=== PATIENT | female | born 1930 | race Caucasian/White ===

== ENCOUNTER 2016-12-25 14:45 | Inpatient (IN) | payer OTHER ==
--- NOTE | ~2016-12-25 | HP ---
History And Physical [place] [address] [facility] [place]. [address] NAME: IVANIA FELTON : 28 STATUS : ADM IN PAT#: [id number] AGE: 86 ADM/REG DATE : 12/25/16 MR#: [id number] REPORT SERV DATE: 12/26/16 DICTATED BY: ALLISON NOBLE DATE: 12/25/16 REPORT STATUS : Draft TRANSCRIBED BY: MODL DATE: 12/25/16 DATE OF ADMISSION: 12/25/2016 CHIEF COMPLAINT: An 86-year-old female with metastatic breast cancer and history of colon cancer, now presenting with increasing confusion and falls. HISTORY OF PRESENT ILLNESS: The patient's history was obtained through an interview with the patient and her best friend coupled with review of [facility] and [facility] medical records. The patient is fairly encephalopathic and so is not able to give much of a history herself. The patient has had progressive confusion and gait disturbance for about two weeks now. She has had a fall about a week ago in which she hit the bottom of her chin. She may have had falls that were not witnessed by the family, but there have been no significant lacerations or bruises on her head that they have noticed. Then, on the day of admission, the patient actually was having increasing gait instability and fell three times. Each time, she did not hit her head or lose consciousness. Her confusion has become quite profound. The patient has become increasingly agitated, irritable, uncooperative. She has had no shortness of breath. No fevers or chills. She has had increasing itching over about a week or so with a rash that is mostly from excoriations over her legs and abdominal wall, but it is not painful. She does describe a headache, but is unable to describe a precise quality or severity of that pain. REVIEW OF SYSTEMS: Otherwise, a 14-point review of systems was obtained and was negative. PAST MEDICAL HISTORY: 1. Breast cancer, first diagnosed in 1990 and 1998. The patient has bilateral mastectomy, history of radiation, has been on chemotherapy. Apparently, there was evidence of metastatic disease to the lung, brain, and bones, although the family was unaware of how advance the cancer was. She has been on chemotherapy under the care Dr. Read. 2. Colon cancer with surgery in 2011. Uncertain if this had an element of metastatic disease as well? The patient was seen by ironer machine, Dr. Patterson. 3. Stroke. 4. Progressive dementia. 5. Hypertension. 6. Anxiety. 7. Dextroscoliosis. 8. Hypothyroidism. 9. Coronary artery disease, but no known history of stent. 10.Glaucoma. History And Physical [address] [place]. [address] NAME: IVANIA FELTON : 28 STATUS : ADM IN [facility]#: [id number] AGE: 86 ADM/REG DATE : 12/25/16 MR#: [id number] REPORT SERV DATE: 12/26/16 DICTATED BY: ALLISON NOBLE DATE: 12/25/16 REPORT STATUS : Draft TRANSCRIBED BY: KURT DATE: 12/25/16 11.Bilateral upper extremity lymphedema. PAST SURGICAL HISTORY: 1. Colectomy. 2. Lumpectomy and then bilateral mastectomy. 3. Incisional hernia repair. 4. Hysterectomy. 5. Right carotid endarterectomy. 6. TMJ surgery. 7. Right carpal tunnel release. ALLERGIES: CODEINE. SOCIAL HISTORY: She is . Lives in [place], [place]. 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 Has no biological children. No tobacco abuse history. No alcohol use. FAMILY HISTORY: Father with abdominal cancer. Brother with cancer. CURRENT MEDICATIONS: Include aspirin 81 mg daily, benazepril/hydrochlorothiazide 20/25 p.o. daily, eye drops, Tranxene 7.5 mg p.o. daily, Benadryl p.r.n., levothyroxine 50 mcg daily, morphine immediate Release 30 mg p.o. q.4 hours p.r.n., scopolamine patch with some type of chemotherapy? Impliant supplement. PHYSICAL EXAMINATION: VITAL SIGNS: Temperature 98.2, pulse 71, blood pressure 173/75, respiratory rate 16, and O2 saturation 96% on room air. GENERAL: An ill-appearing female. She is not in any distress, but is quite confused and lethargic. HEENT: Pupils equal, round, and reactive to light. No conjunctival pallor. No scleral icterus. Nares are patent. Oropharynx is clear of obstruction. Moist mucous membranes. NECK: Trachea midline. No thyromegaly. LYMPH: No cervical lymphadenopathy. No supraclavicular lymphadenopathy. NEUROLOGICAL: Cranial nerves 2 through 12 are intact and symmetrical. The patient has 5/5 strength in upper and lower extremities that is symmetrical. RESPIRATORY: Clear to auscultation at bases. I do not appreciate any wheezes, rales, or rhonchi. Normal respiratory effort. CARDIOVASCULAR: Regular rate and rhythm. No murmurs, rubs, or gallops. No extremity edema is appreciated. ABDOMEN: Soft, nontender, nondistended. Normal bowel sounds auscultated throughout. No hepatosplenomegaly. DERMATOLOGICAL: Warm and dry extremities. No pallor. No cyanosis. PSYCHIATRIC: A flat affect and irritable mood, but currently she is cooperative. She is alert and appropriate, but she is disoriented to location, time, and a recent history. LABORATORY DATA: Urine drug screen positive for opiates and benzodiazepines. Urinalysis negative for infection. Lactic acid 0.8. Troponin negative. White blood cell count 10, hemoglobin 11, hematocrit 33, platelets 425. Sodium 134, potassium 3.5, chloride 98, bicarb History And Physical [address] [address] NAME: IVANIA FELTON : 29 STATUS : ADM IN [facility]#: [id number] AGE: 86 ADM/REG DATE : 12/25/16 MR#: [id number] REPORT SERV DATE: 12/26/16 DICTATED BY: ALLISON NOBLE DATE: 12/25/16 REPORT STATUS : Draft TRANSCRIBED BY: MODL DATE: 12/25/16 30, BUN 12, creatinine 0.75, glucose 125. STUDIES: 1. CT scan of the brain shows bilateral subdural hematomas subacute on chronic in appearance. These were not evident on old CT scans in our record. 2. Chest x-ray by my own evaluation shows chronic interstitial lung disease versus metastatic disease of the lung. 3. EKG by my own evaluation shows sinus rhythm, left bundle-branch block. ASSESSMENT AND PLAN: It should be noted that Dr. Schmitz in the emergency department discussed transfer to [place] with the , who is the patient's power of senior attorney. He adamantly refused to go to [facility] with his and wanted her to be seen here at our hospital. It is apparently discussed how critical her condition was and the only real treatment for subdural hematoma would be neurosurgery, but he understood and wanted to remain at [facility]. Unfortunately, by the time I came to evaluate the patient, the had returned home and has been unavailable by telephone up to the time of this dictation. There was not a discussion made about the patient's code status. 1. Bilateral subdural hematomas with progressive delirium and instability. The patient's adamantly refuses to go to [facility]. We will provide supportive and palliative care only. 2. Metastatic breast cancer with what appears to be an abnormal bone scan suggesting bone metastases and possible brain and lung metastases? We will consult Dr. Filipe Read, Oncologist. 3. Colon cancer, status post resection in 2011, question possible metastases from this as well? 4. Dementia. KPL/MODL Allison Noble M.D. / [id number] CC: MD Beth Tsai M.D. Davey B. Daniel, M.D.
--- NOTE | ~2016-12-25 | DS ---
Discharge Summary [facility] [address] [place]. [address] NAME: IVANIA FELTON : 28 STATUS : DIS IN PAT#: [id number] AGE: 86 ADM/REG DATE : 12/25/16 MR#: [id number] REPORT SERV DATE: 12/28/16 DICTATED BY: DATE: REPORT STATUS : Draft TRANSCRIBED BY: MODL DATE: 12/27/16 ADMISSION DATE: 12/25/2016 DISCHARGE DATE: 12/27/2016 DISCHARGE DIAGNOSES: 1. Agitation/confusion, progressive. 2. Bilateral subdural hematomas. 3. Metastatic breast cancer. 4. Hypertension. 5. Urinary retention, acute. CONSULTATIONS: Dr. Filipe Read, [facility]. PERTINENT TESTING PROCEDURES: 1. CT of the brain without contrast, 12/25/2016, impression:. a. A. Bilateral frontal, parietal, and temporal subdural collection appearing to represent a subacute on chronic hematoma on the right with some more hyperdense component anteriorly measuring up to 9 mm in thickness. Left-sided subdural hematoma/hygroma appears chronic and measures up to 10 mm in thickness. No midline shift or intra parenchymal hemorrhage demonstrated. b. B. Moderate cortical volume loss and findings compatible with moderate chronic deep white matter ischemic changes. c. C. Left parietal scalp soft tissue swelling. 2. Chest x-ray, 12/25/2016, impression: Mild interstitial prominence appears chronic and related to fibrosis. Persistent elevation of right diaphragm with right basilar atelectasis. Stable chest x-ray. 3. Chest x-ray, 12/26/2016, impression: Shallow inspiration with minimal right basilar atelectasis. Otherwise, no acute cardiopulmonary abnormality. 4. Blood cultures collected 12/25/2016, preliminary result, no growth at two days. 5. Urinalysis, urine collected December 25 result negative. CHIEF COMPLAINT UPON ADMISSION: Increasing confusion and falls. HOSPITAL COURSE: Please refer to history and physical dated 12/26/2016, provided by Dr. Nick Foley for complete details pertaining to patient's initial presentation upon admission and health history. Briefly, the patient is an 86-year-old female with a past medical history of metastatic breast cancer, colon cancer, stroke, progressive dementia, hypertension, anxiety, and coronary artery disease. The patient presented to the emergency department accompanied by her spouse on December 25. The patient's spouse reported that the patient had become progressively confused with increasing gait instability for about two weeks prior to admission. Spouse reported patient suffered three falls at home on the day of this admission. Discharge Summary [address] [place]. [address] NAME: IVANIA FELTON : 28 STATUS : DIS IN PAT#: [id number] AGE: 86 ADM/REG DATE : 12/25/16 MR#: [id number] REPORT SERV DATE: 12/28/16 DICTATED BY: DATE: REPORT STATUS : Draft TRANSCRIBED BY: MODL DATE: 12/27/16 Initial diagnostic workup included CT scan of the brain which showed bilateral subdural hematomas, subacute on chronic. Per review of history and physical, emergency room physician discussed possible transfer to [facility], but the patient's spouse declined transfer. The patient was admitted for further evaluation and treatment to include supportive and palliative care only. 1. Progressive agitation and confusion. This is multifactorial to include a history of progressive dementia; subdural hematoma, subacute on chronic; metastatic breast cancer. The patient's agitation and confusion has progressively worsened over the past 24 hours. The patient required multiple doses of Geodon over the last 24 hours without significant decrease in symptoms. The patient will now receive Haldol 5 mg IV every four hours as needed while awaiting transition to [facility]. 2. Bilateral subdural hematomas. The patient has had multiple recent falls. Upon admission, recommendation was made by emergency room physician for transfer to [place]. The patient is do not resuscitate. declined transfer. No interventions were initiated. The patient is now awaiting transition to [facility] for comfort and supportive measures only. 3. Metastatic breast cancer. The patient has been under the outpatient care of Dr. Filipe Read at [facility]. Although patient's condition is incurable, it has been fairly well controlled on Faslodex. No additional treatment will be pursued as the patient is now transitioning to [facility] for supportive and comfort measures during transition due to terminal phase of disease process. 4. Chronic hypertension. Blood pressure medicines will be continued per discretion of [facility]. 5. Acute urinary retention. Bladder scan yesterday revealed patient was retaining approximately 1000 mL of urine. Childers catheter was successfully placed. Exact etiology is unclear. However, may be related to patient's home medications to include Benadryl and scopolamine scheduled. All Childers care or trial of voiding will be managed per [facility]. DISCHARGE CONDITION: At the time of discharge, the patient is hemodynamically stable; however, is suffering from progressive agitation and confusion. DISCHARGE DIET: To be determined per [facility]. DISCHARGE MEDICATIONS: To be determined per [facility]. The patient will receive Haldol 5 mg IV every four hours as needed for agitation and restlessness prior to discharge. DISCHARGE INSTRUCTIONS: The patient will transfer to [facility]. All further plans of care will be managed per hospice physician. BETH/KURT Abigail Greene, [employer]ER-C Discharge Summary [address] [address] NAME: IVANIA FELTON : 29 STATUS : DIS IN PAT#: [id number] AGE: 86 ADM/REG DATE : 12/25/16 MR#: [id number] REPORT SERV DATE: 12/28/16 DICTATED BY: DATE: REPORT STATUS : Draft TRANSCRIBED BY: KURT DATE: 12/27/16 / [id number] CC: MD Beht Crawley II, M.D.
[~2016-12-25 14:45] MED LIST: ASAB PO; BENTYL10 PO; CARDU4 PO; CATAPRES3 TOP; CENTRUM TAB1 TAB PO; CO Q-10100 MG PO; CO Q-10200 MG PO; COQ-10200 MG OR; COREG3 PO; FEMARA PO; FISH-EPA1000 MG PO; FLAG500TAB PO; IMODIUM ADV1 CHW PO; LEVOTHROID75 MCG PO; LEXAPRO10 PO; LEXAPRO5 MG PO; LIPITOR40 PO; LOTE20 PO; LOTENSIN HCT1 TA2 PO; LUMIGAN OPH; MSIMMREL PO; OSTEO BI FLEX PO; PERCOCET1 TA2 PO; PR25 PO; PR25R PR; PROTONIX PO; QUESTRAN4 GM PO; REG5 PO; RESTORIL30 MG PO; SINEQUAN 75 MG75 MG PO; SUCR PO; SYN.05 PO; SYN075 PO; TRANSSCOP TOP; ULTRAM50 PO; VITAMIN B-121000 MC1 SL; VITAMIN D1000 UNI1 PO; VITAMIN D31000 UNIT PO; VITE PO; [UNRECOGNIZED DRUG - REMARK]
[2016-12-25 15:31] LABS: BASOPHILS 0.2 %; BASOPHILS ABSOLUTE 0.02 10/3/uL (0.0-0.16); EOSINOPHILS 0.3 %; EOSINOPHILS ABSOLUTE 0.03 10/3/uL (0.0-0.53); HEMATOCRIT 33.2 % (36.0-48.0); HEMOGLOBIN 11.6 g/dL (12.0-16.0); IMMATURE GRANULOCYTES 0.1 %; IMMATURE GRANULOCYTES ABSOLUTE 0.01 10/3/uL (0.0-0.11); LYMPHOCYTES 8.6 %; LYMPHOCYTES ABSOLUTE 0.87 10/3/uL (0.67-4.30); MEAN CORPUS HGB CONC 34.9 g/dL (32.0-36.0); MEAN CORPUSCULAR HEMOGLOB 30.4 pg (26.0-34.0); MEAN CORPUSCULAR VOLUME 87.1 fL (80-100); MEAN PLATELET VOLUME 9.9 fL (9.2-13.0); MONOCYTES 8.5 %; MONOCYTES ABSOLUTE 0.86 10/3/uL (0.21-1.20); NEUTROPHILS 82.3 %; NEUTROPHILS ABSOLUTE 8.31 10/3/uL (2.02-8.40); RBC DISTRIBUTION WIDTH 13.8 % (12.0-16.0); RED CELL COUNT 3.81 10/6/uL (4.0-5.6); WHITE BLOOD CELLS 10.1 10/3/uL (4.5-10.5)
[2016-12-25 15:32] LABS: MANUAL DIFF NO %; PLATELET COUNT 425 10/3/uL (150-400)
[2016-12-25 15:46] LABS: ACETAMINOPHEN LEVEL (TYLENOL) < 2.0 MCG/ML (10.0-20.0); ALCOHOL < 3 MG/DL (0); INTERNATIONAL NORMAL RATI 1.1 UNITS (-); PARTIAL THROMBO TIME 31.6 SEC (22.5-37.2); PROTIME (NOT ORD) 13.7 SEC (12.0-14.5); SALICYLATE < 1.7 MG/DL (-)
[2016-12-25 15:48] LABS: CALCIUM, SERUM 8.9 MG/DL (8.5-10.4); CHEST PAIN PROFILE TAT 0 Hrs 23 Mins; CHLORIDE, SERUM 98 MMOL/L (96-112); CO2 (CARBON DIOXIDE) 30 MMOL/L (24-34); CREATININE 0.73 MG/DL (0.55-1.02); GFR AFRICAN AMERICAN 86 ML/MIN (>=60); GFR NON AFRICAN AMERICAN 74 ML/MIN (>=60); POTASSIUM, SERUM 3.5 MMOL/L (3.5-5.3); TROPONIN I <0.02 NG/ML (<0.05)
[2016-12-25 15:49] LABS: LACTATE 0.8 MMOL/L (0.3-2.4)
[2016-12-25 15:50] LABS: BUN (BLOOD UREA NITROGEN) 12 MG/DL (6-23); GLUCOSE, SERUM 125 MG/DL (60-99); SODIUM, SERUM 134 MMOL/L (135-148)
[2016-12-25 16:38] LABS: WBC (NOT ORDERED) (RFLEX) 0 (0-5)
[2016-12-25 16:46] LABS: ASCORBIC ACID (UR NOT ORDER) 20 (NEG); BILIRUBIN, URINE NEGATIVE (NEG); ER URINALYSIS TAT 0 Hrs 10 Mins; KETONE, URINE NEGATIVE (NEG); LEUKOCYTE ESTERASE(NOT OR NEG (NEG); NITRITE (URINE) NEG (NEG)
[2016-12-25 16:54] LABS: AMPHETAMINES (NOT ORD) NEG (NEG); BARBITURATES (NOT ORDERED NEG (NEG); BENZODIAZEPINES (NOT ORD) POS (NEG); CANNABINOIDS (THC) NEG (NEG); COCAINE (NOT ORDERED) NEG (NEG); OPIATES POS (NEG); PHENCYCLIDINE(PCP) NEG (NEG); TRICYCLICS NEG (NEG)
[2016-12-25] MEDS ORDERED: LEVOTHYROXIN50 MCG PO (19:21)
[2016-12-25] MEDS ORDERED: CHEMOTHERAPY IM (19:21)
[2016-12-25] MEDS ORDERED: LOTENSIN HCT1 TA3 PO (19:21)
[2016-12-25] MEDS ORDERED: LUMIGAN2.5 ML OPH (19:22)
[2016-12-25] MEDS ORDERED: MSIMMREL PO (19:22)
[2016-12-25] MEDS ORDERED: TRANXENE 7.5 M7.5 MG PO (19:22)
[2016-12-25] MEDS ORDERED: TRANSSCOP TOP (19:23)
[2016-12-25] MEDS ORDERED: [UNRECOGNIZED DRUG - OTHER] PO (19:23)
[2016-12-25] MEDS ORDERED: ASAB PO (19:23)
[2016-12-25] MEDS ORDERED: BANOPHEN25 MG PO (19:29)
[2016-12-26 04:45] LABS: BASOPHILS 0.2 %; BASOPHILS ABSOLUTE 0.02 10/3/uL (0.0-0.16); HEMATOCRIT 32.3 % (36.0-48.0); HEMOGLOBIN 11.7 g/dL (12.0-16.0); IMMATURE GRANULOCYTES 0.1 %; IMMATURE GRANULOCYTES ABSOLUTE 0.01 10/3/uL (0.0-0.11); LYMPHOCYTES 18.6 %; LYMPHOCYTES ABSOLUTE 1.81 10/3/uL (0.67-4.30); MANUAL DIFF NO %; MEAN CORPUS HGB CONC 36.2 g/dL (32.0-36.0); MEAN CORPUSCULAR HEMOGLOB 30.9 pg (26.0-34.0); MEAN CORPUSCULAR VOLUME 85.2 fL (80-100); MEAN PLATELET VOLUME 9.7 fL (9.2-13.0); MONOCYTES ABSOLUTE 0.78 10/3/uL (0.21-1.20); NEUTROPHILS 72.1 %; NEUTROPHILS ABSOLUTE 7.02 10/3/uL (2.02-8.40); PLATELET COUNT 406 10/3/uL (150-400); RBC DISTRIBUTION WIDTH 13.6 % (12.0-16.0); RED CELL COUNT 3.79 10/6/uL (4.0-5.6); WHITE BLOOD CELLS 9.7 10/3/uL (4.5-10.5)
[2016-12-26 05:09] LABS: ALBUMIN 3.1 G/DL (3.5-5.0); ALKALINE PHOSPHATASE 74 U/L (45-117); BUN (BLOOD UREA NITROGEN) 10 MG/DL (6-23); CALCIUM, SERUM 9.1 MG/DL (8.5-10.4); CHLORIDE, SERUM 98 MMOL/L (96-112); CO2 (CARBON DIOXIDE) 29 MMOL/L (24-34); CREATININE 0.64 MG/DL (0.55-1.02); GFR AFRICAN AMERICAN 93 ML/MIN (>=60); GFR NON AFRICAN AMERICAN 80 ML/MIN (>=60); GLOBULIN 3.1 G/DL (2.5-4.1); GLUCOSE, SERUM 98 MG/DL (60-99); POTASSIUM, SERUM 3.4 MMOL/L (3.5-5.3); SGOT(AST) 17 U/L (5-40); SGPT(ALT) 15 U/L (5-65); SODIUM, SERUM 133 MMOL/L (135-148); TOTAL BILIRUBIN 0.6 MG/DL (0-1.2); TOTAL PROTEIN 6.2 G/DL (6.0-8.5); ULTRASENSITIVE TSH 0.883 MCIU/ML (0.358-3.740)
[2016-12-26 05:20] LABS: INTERNATIONAL NORMAL RATI 1.2 UNITS (-); PARTIAL THROMBO TIME 36.7 SEC (22.5-37.2); PROTIME (NOT ORD) 14.8 SEC (12.0-14.5)
== END 2016-12-27 15:08 | disposition hospice, inpatient (51) | DRG 86 ==
LOC: ER 14:45 → 4EA 20:44
PROVIDERS: Emergency Medicine; Hospitalist
DX: S06.5X0A Traumatic subdural hemorrhage without loss of consciousness, initial encounter (principal); C79.51 Secondary malignant neoplasm of bone; C50.919 Malignant neoplasm of unspecified site of unspecified female breast; F03.90 Unspecified dementia, unspecified severity, without behavioral disturbance, psychotic disturbance, mood disturbance, and anxiety; Z51.5 Encounter for palliative care; I10 Essential (primary) hypertension
CPT/HCPCS: 70450; 71010; 80048; 80053; 80305; 80307; 81001; 83605; 83735; 84443; 84484; 85025; 85610; 85730; 87040; 99291; A9270-GY; J1630; J3486